=== PATIENT | female | born 1990 | race Caucasian/White ===

== ENCOUNTER 2018-05-11 18:27 | Emergency (ER) | payer MEDICAID ==
[~2018-05-11] VITALS: Ht 152.4 cm; Wt 52.0 kg
[2018-05-11 19:27] VITALS: BP 84/49
== END 2018-05-11 22:00 | disposition left against medical advice (07) ==
LOC: ER 20:35
DX: R50.9 Fever, unspecified (principal); M79.10 Myalgia, unspecified site; Z53.21 Procedure and treatment not carried out due to patient leaving prior to being seen by health care provider

== ENCOUNTER 2019-07-05 16:47 | Inpatient (IN) | payer MEDICAID ==
[~2019-07-05] VITALS: Ht 149.9 cm; Wt 64.4 kg
[2019-07-05] MEDS ORDERED: PNV1TABL76 PO (17:23)
[2019-07-05] MEDS ORDERED: FERR325T6 PO (17:23)
[2019-07-05] MEDS ORDERED: DEXT 5%/LR + PITOCIN 20UNITS/L 1,000 ML IV SCH ×2 (17:30→21:16)
[2019-07-05] MEDS ORDERED: LACTATED RINGERS 1,000 ML IV SCH (17:30)
[2019-07-05] MEDS ORDERED: METHYLERGONOVINE MALEATE 0.2 MG/ML IM PRN (17:30)
[2019-07-05] MEDS ORDERED: MISOPROSTOL 100MCG TABLET VG PRN (17:30)
[2019-07-05] MEDS ORDERED: CARBOPROST TROMETHAMINE 250 MCG/ML AMPUL IM PRN (17:30)
[2019-07-05 18:29] LABS: BASOPHILS % 1.1 % (0.0-2.0); EOSINOPHILS % 0.3 % (0.0-5.0); HEMATOCRIT. 32.7 % (36.0-48.0); LYMPHOCYTES % 24.7 % (20.0-50.0); MEAN CORPUSCULAR HEMOGLOBIN 27.8 pg (28.0-32.0); MEAN CORPUSCULAR VOLUME 82.8 fL (81.0-99.0); MEAN PLATELET VOLUME 9.9 fl (7.4-10.4); MONOCYTES % 5.7 % (2.0-8.0); NEUTROPHILS % 68.2 % (40.0-76.0); PLATELET 310 x1000/uL (130-400); RED BLOOD CELL COUNT 3.95 mill/uL (4.2-5.4)
[2019-07-05 18:30] LABS: CLARITY URINE CLOUDY (CLEAR); COLOR URINE YELLOW (YELLOW); KETONES URINE NEGATIVE (NEGATIVE); LEUKOCYTE ESTERASE URINE TRACE (NEGATIVE); NITRITE URINE NEGATIVE (NEGATIVE); OCCULT BLOOD URINE NEGATIVE (NEGATIVE); PROTEIN URINE NEGATIVE (NEGATIVE); SPECIFIC GRAVITY URINE 1.019 (1.005-1.030)
[2019-07-05 18:39] LABS: INR 0.9; PARTIAL THROMBOPLASTIN TIME 22.6 sec (23.4-31.0); PROTHROMBIN TIME 9.6 sec (9.6-11.0)
[2019-07-05 18:42] LABS: *AMPHETAMINES SCREEN URINE NEGATIVE (NEGATIVE); *BARBITURATES SCREEN URINE NEGATIVE (NEGATIVE); *BENZODIAZEPINES SCREEN URINE NEGATIVE (NEGATIVE); *COCAINE SCREEN URINE NEGATIVE (NEGATIVE); METHADONE URINE SCREEN NEGATIVE (NEGATIVE); OPIATES URINE SCREEN NEGATIVE (NEGATIVE); PHENCYCLIDINE URINE SCREEN NEGATIVE (NEGATIVE)
[2019-07-05 18:43] LABS: CANNABINOID URINE SCREEN NEGATIVE (NEGATIVE)
[2019-07-05] MEDS ORDERED: FENTANYL CITRATE/PF 50MCG/ML 2ML VIAL ONE (18:51)
[2019-07-05] MEDS ORDERED: ONDANSETRON HCL 4MG/2ML INJ ONE (18:52)
[2019-07-05] MEDS ORDERED: MORPHINE SULFATE/PF 1MG/ML 10ML AMP ONE (18:52)
[2019-07-05] MEDS ORDERED: OXYTOCIN 10 UNITS/ML 1ML ONE ×2 (18:52→20:35)
[2019-07-05] MEDS ORDERED: CEFAZOLIN SODIUM 1000MG/VIAL ONE (18:52)
[2019-07-05] MEDS ORDERED: GLYCOPYRROLATE 0.2 MG/ML 2ML VIAL ONE (18:52)
[2019-07-05] MEDS ORDERED: CITRIC ACID/SODIUM CITRATE SOLN 30ML UDC PO NR (19:00)
[2019-07-05 19:07] LABS: HEPATITIS B SURFACE ANTIGEN NEGATIVE
[2019-07-05] MEDS ORDERED: SODIUM CHLORIDE 0.9% 10ML VIAL ONE (19:44)
[2019-07-05] MEDS ORDERED: ESMOLOL HCL 10MG/ML 10ML VIAL IV ONE (20:34)
[2019-07-05] MEDS ORDERED: DIPHENHYDRAMINE 50MG/ML VIAL ONE (20:36)
[2019-07-05] MEDS ORDERED: KETOROLAC 60MG/2ML VIAL IM ONE (20:36)
[2019-07-05] MEDS ORDERED: BUTORPHANOL TARTRATE 2 MG/ML VIAL IV PRN (21:30)
[2019-07-05] MEDS ORDERED: KETOROLAC 30MG/ML VIAL IV SCH (21:30)
[2019-07-05] MEDS ORDERED: DIPHENHYDRAMINE 50MG/ML VIAL IV PRN (21:30)
[2019-07-05] MEDS ORDERED: RHO(D) IMMUNE GLOBULIN 300 MCG/SYR IM PRN (21:30)
[2019-07-05] MEDS ORDERED: BISACODYL 10MG SUPP PR PRN (21:30)
[2019-07-05] MEDS ORDERED: NALOXONE HCL 0.4 MG/ML 1ML VIAL IV PRN (21:30)
[2019-07-05] MEDS ORDERED: IBUPROFEN 400MG TABLET PO PRN (21:30)
[2019-07-05 23:20] VITALS: BP 89/57
[2019-07-06] VITALS: BP 93/56
[2019-07-06] MEDS: KETOROLAC 30MG/ML VIAL IV PRN (02:10)
[2019-07-06 04:00] VITALS: BP 90/56
[2019-07-06 07:17] LABS: BASOPHILS % 0.2 % (0.0-2.0); EOSINOPHILS % 0.2 % (0.0-5.0); HEMATOCRIT. 27.8 % (36.0-48.0); HEMOGLOBIN. 9.2 g/dL (12.0-16.0); LYMPHOCYTES % 18.5 % (20.0-50.0); MEAN CORPUSCULAR HEMOGLOBIN 27.6 pg (28.0-32.0); MEAN CORPUSCULAR VOLUME 83.4 fL (81.0-99.0); MEAN PLATELET VOLUME 9.9 fl (7.4-10.4); MONOCYTES % 6.2 % (2.0-8.0); NEUTROPHILS % 74.9 % (40.0-76.0); PLATELET 237 x1000/uL (130-400); RED BLOOD CELL COUNT 3.34 mill/uL (4.2-5.4); RED CELL DISTRIBUTION WIDTH 19.6 % (11.6-14.6)
[2019-07-06 08:00] VITALS: BP 90/59
[2019-07-06] MEDS ORDERED: TETANUS, DIPHTHERIA, PERTUSSIS VAC/PF 0.5ML (>7YR OLD) IM ONE (08:00)
[2019-07-06] MEDS ORDERED: INFLUENZA VIRUS VACCINE(AFLURIA) 0.5ML SYR IM ONE (10:00)
[2019-07-06 12:00] VITALS: BP 89/53
[2019-07-06 16:00] VITALS: BP 90/51
[2019-07-06 19:50] VITALS: BP 95/61
[2019-07-06] MEDS: IBUPROFEN 800MG TABLET PO PRN (23:12)
[2019-07-07 00:20] VITALS: BP 92/58
[2019-07-07 04:30] VITALS: BP 89/54
[2019-07-07] MEDS: KETOROLAC 30MG/ML VIAL IV PRN (07:38)
[2019-07-07] MEDS ORDERED: IBUP-2030 MT (07:48)
[2019-07-07] MEDS: IBUPROFEN 800MG TABLET PO PRN ×3 (08:11→21:12)
[2019-07-07 19:30] VITALS: BP 97/55
[2019-07-08 04:25] VITALS: BP 94/54
[2019-07-08] MEDS: IBUPROFEN 800MG TABLET PO PRN (04:46)
[2019-07-08 08:20] VITALS: BP 97/64
== END 2019-07-08 12:30 | disposition home or self-care (01) | DRG 540 ==
LOC: 8 EST LDRP 16:47 → OBSVTOIN 16:47 → 8EST 23:15
PROVIDERS: ADMIT Obstetrics & Gynecology; ATTEND Obstetrics & Gynecology
PROC: 10D00Z1 Extraction of Products of Conception, Low, Open Approach (ICD-10-PCS; principal; 2019-07-05)
PROC: 0U570ZZ Destruction of Bilateral Fallopian Tubes, Open Approach (ICD-10-PCS; 2019-07-05)
PROC: 0UB70ZZ Excision of Bilateral Fallopian Tubes, Open Approach (ICD-10-PCS; 2019-07-05)
DX: O34.211 Maternal care for low transverse scar from previous cesarean delivery (principal); K66.0 Peritoneal adhesions (postprocedural) (postinfection); O32.2XX0 Maternal care for transverse and oblique lie, not applicable or unspecified; N85.8 Other specified noninflammatory disorders of uterus; O69.1XX0 Labor and delivery complicated by cord around neck, with compression, not applicable or unspecified; O32.8XX0 Maternal care for other malpresentation of fetus, not applicable or unspecified; Z37.0 Single live birth; Z3A.39 39 weeks gestation of pregnancy; Z30.2 Encounter for sterilization
CPT/HCPCS: 36415; 80305; 81003; 85025; 86592; 86703; 86762; 86850; 86900; 86920; 87340; 88302; 88307; 90715; G0378; J0690; J1200; J1885; J2274; J2405; J2590; J3010; J3490